=== PATIENT | male | born 1965 | race Caucasian/White ===

== ENCOUNTER 2021-02-22 13:13 | Outpatient (CLI) | payer OTHER ==
[2021-02-22 14:16] LABS: BASOPHILS % (AUTO) 1 % (0-1); EOSINOPHILS % (AUTO) 3 % (1-7); LYMPHOCYTES % (AUTO) 30 % (22-44); MEAN CORPUSCULAR HEMOGLOBIN 29.5 pg (27.5-34.5); MEAN CORPUSCULAR HGB CONC 33.7 g/dL (33.2-36.2); MEAN PLATELET VOLUME 8.9 fL (7.4-10.4); MONOCYTES % (AUTO) 11 % (2-9); NEUTROPHILS % (AUTO) 55 % (42-75); PLATELET COUNT 215 x10^3/uL (130-400); RED BLOOD COUNT 5.41 x10^6/uL (4.38-5.82); RED CELL DISTRIBUTION WIDTH 13.4 % (9.4-14.8)
[2021-02-22] MEDS ORDERED: DOXE6TAB3 PO (14:21)
[2021-02-22] MEDS ORDERED: LACT1CAP35 PO (14:21)
[2021-02-22] MEDS ORDERED: ZOLP10TA PO (14:21)
[2021-02-22] MEDS ORDERED: IBUP200C8 PO (14:21)
[2021-02-22] MEDS ORDERED: CYAN100072 PO (14:21)
[2021-02-22] MEDS ORDERED: ACET500P23 PO (14:21)
[2021-02-22 14:26] LABS: ALANINE AMINOTRANSFERASE 60 U/L (12-78); ALBUMIN 3.8 g/dL (3.4-5.0); ANION GAP 5 mmol/L (5-15); CALCIUM 8.7 mg/dL (8.5-10.1); CHLORIDE 108 mmol/L (98-107); CREATININE 1.14 mg/dL (0.7-1.3)
[2021-02-22 14:29] LABS: ALKALINE PHOSPHATASE 69 U/L (45-117); BILIRUBIN,TOTAL 0.7 mg/dL (0.2-1.0); TOTAL PROTEIN 7.1 g/dL (6.4-8.2)
== END 2021-02-22 23:59 | disposition home or self-care (01) ==
LOC: STAR 13:13
PROVIDERS: ATTEND Urology
DX: Z01.818 Encounter for other preprocedural examination (principal); C61 Malignant neoplasm of prostate; I44.7 Left bundle-branch block, unspecified
CPT/HCPCS: 36415; 80053; 85025; 93005